=== PATIENT | female | born 1965 | race Caucasian/White ===

== ENCOUNTER 2023-12-10 14:55 | Emergency (ER) | payer OTHER | END 2023-12-10 16:13 | disposition home or self-care (01) | LOC: NAV ERS 14:55 | DX: S80.01XA Contusion of right knee, initial encounter (principal); E03.9 Hypothyroidism, unspecified; Z79.890 Hormone replacement therapy; W01.0XXA Fall on same level from slipping, tripping and stumbling without subsequent striking against object, initial encounter ==